=== PATIENT | male | born 1935 | race Caucasian/White ===

== ENCOUNTER 2023-04-11 16:30 | Emergency (ER) | payer SELFPAY ==
[~2023-04-11] VITALS: Ht 172.7 cm; Wt 73.0 kg
[2023-04-11 16:42] VITALS: O2SAT 96
[2023-04-11 17:08] LABS: BASOPHILS % 0.6 % (0.0-2.0); EOSINOPHILS % 0.9 % (0.0-5.0); HEMATOCRIT. 39.9 % (42.0-52.0); HEMOGLOBIN. 14.3 g/dL (14.0-18.0); LYMPHOCYTES % 21.6 % (20.0-50.0); MEAN CORPUSCULAR HEMOGLOBIN 32.1 pg (28.0-32.0); MEAN CORPUSCULAR VOLUME 89.6 fL (80.0-94.0); MEAN PLATELET VOLUME 9.1 fl (7.4-10.4); MONOCYTES % 7.8 % (2.0-8.0); NEUTROPHILS % 69.1 % (40.0-76.0); PLATELET 195 x1000/uL (130-400); RED BLOOD CELL COUNT 4.45 mill/uL (4.7-6.1); RED CELL DISTRIBUTION WIDTH 12.5 % (11.6-14.6)
[2023-04-11 17:21] LABS: CHLORIDE 99 mEq/L (98-107)
[2023-04-11 21:16] VITALS: BP 137/76; PULSE 92; RESP 23; TEMP 98
== END 2023-04-11 21:17 | disposition home or self-care (01) ==
LOC: ER 16:30
DX: R22.1 Localized swelling, mass and lump, neck (principal); F45.8 Other somatoform disorders; I10 Essential (primary) hypertension
CPT/HCPCS: 36415; 70490; 71045; 71250; 80053; 85025; 99284

== ENCOUNTER 2024-03-22 17:01 | Emergency (ER) | payer OTHER ==
[~2024-03-22] VITALS: Ht 175.3 cm; Wt 57.0 kg
[2024-03-22 17:05] VITALS: O2SAT 100
[2024-03-22 17:51] VITALS: BP 174/86; PULSE 70; RESP 13; TEMP 98.1
[2024-03-22 20:13] LABS: BASOPHILS % 0.6 % (0.0-2.0); HEMATOCRIT. 42.2 % (42.0-52.0); HEMOGLOBIN. 14.5 g/dL (14.0-18.0); LYMPHOCYTES % 27.2 % (20.0-50.0); MEAN CORPUSCULAR HGB CONC 34.3 g/dL (31.0-37.0); MEAN CORPUSCULAR VOLUME 93.1 fL (80.0-94.0); MEAN PLATELET VOLUME 9.4 fl (7.4-10.4); MONOCYTES % 8.2 % (2.0-8.0); PLATELET 131 x1000/uL (130-400); RED BLOOD CELL COUNT 4.53 mill/uL (4.7-6.1); WHITE BLOOD COUNT 5.8 x1000/uL (4.5-11.0)
[2024-03-22 20:21] LABS: CHLORIDE 103 mEq/L (98-107); POTASSIUM 3.5 mEq/L (3.5-5.1); SODIUM 134 mEq/L (136-145)
[2024-03-22 20:22] LABS: CARBON DIOXIDE 26 mEq/L (21-32)
[2024-03-22 20:25] LABS: PROTHROMBIN TIME 11.1 sec (9.6-11.0)
[2024-03-22 20:27] LABS: CREATININE 0.8 mg/dL (0.6-1.3); GLUCOSE 102 mg/dL (70-105); UREA NITROGEN BLOOD 12 mg/dL (9-23)
[2024-03-22 20:30] LABS: ETHANOL BLOOD < 10 mg/dL (<10)
[2024-03-22] MEDS ORDERED: IOHEXOL-350 100 ML BOTTLE ONE (23:15)
== END 2024-03-22 21:19 | disposition left against medical advice (07) ==
LOC: ER 17:01
DX: R41.82 Altered mental status, unspecified (principal); I10 Essential (primary) hypertension; I82.401 Acute embolism and thrombosis of unspecified deep veins of right lower extremity; Z98.890 Other specified postprocedural states
CPT/HCPCS: 80048; 80320; 85025; 85610; 36415; 71045; 70496; 70498; 70450; 99285; Q9967; G0480